=== PATIENT | male | born 1995 | race Caucasian/White ===

== ENCOUNTER 2022-02-06 20:14 | Inpatient (IN) | payer BC ==
[~2022-02-06] VITALS: Ht 172.7 cm; Wt 102.1 kg
[~2022-02-06 20:14] MED LIST: ZOFRAN4 MG PO
[2022-02-06 20:57] LABS: HEMOGLOBIN 16.2 gm/dl (14.0-17.5); WHITE BLOOD COUNT 11.2 K/UL (4.5-11.0)
[2022-02-06 21:39] LABS: BUN/CREATININE RATIO 23 (0-10)
[2022-02-07 01:04] LABS: BUN/CREATININE RATIO 25 (0-10)
[2022-02-07] MEDS ORDERED: TRAZODONE HCL50 MG PO (05:37)
[2022-02-07 06:50] LABS: BUN/CREATININE RATIO 24 (0-10)
[2022-02-07 14:13] LABS: BUN/CREATININE RATIO 12 (0-10)
[2022-02-07 23:07] LABS: BUN/CREATININE RATIO 16 (0-10)
[2022-02-08 06:12] LABS: BUN/CREATININE RATIO 16 (0-10)
[2022-02-08 11:56] LABS: BUN/CREATININE RATIO 15 (0-10)
== END 2022-02-08 16:46 | disposition home or self-care (01) | DRG 918 ==
LOC: ER1 20:14 → CDU 02-07 02:08 → CCU 02-07 02:08
PROVIDERS: Family Medicine; Student in an Organized Health Care Education/Training Program; ADMIT Internal Medicine
DX: T39.1X1A Poisoning by 4-Aminophenol derivatives, accidental (unintentional), initial encounter (principal); F41.9 Anxiety disorder, unspecified; E87.6 Hypokalemia; G47.00 Insomnia, unspecified; Z98.890 Other specified postprocedural states; Z83.3 Family history of diabetes mellitus
CPT/HCPCS: 36415; 71045; 80053; 80307; 81001; 82550; 82553; 83735; 84484; 85025; 85610; 93005; 99285; G0480; J0132; J2405; J7060; J7070